=== PATIENT | male | born 1950 | race Caucasian/White ===

== ENCOUNTER 2021-11-26 14:35 | Inpatient (IN) ==
[2021-11-26 17:01] LABS: ABS Eosinophils 0.1 10^3/ul (0-0.6); ABS Lymphocytes 1.3 10^3/ul (1.0-4.8); ABS Monocytes 0.7 10^3/ul (0-0.8); ABS Neutrophils 5.6 10^3/ul (1.5-7.7); Eosinophil % 0.8 %; Hematocrit 41 % (42-52); Hemoglobin 14.8 g/dL (14.0-18.0); Lymphocyte % 16.9 %; Mean Corpuscular HGB Conc 36 g/dL (31-36); Mean Corpuscular Hemoglobin 35 pg (27-31); Mean Corpuscular Volume 96 fL (80-94); Mean Platelet Volume 6.8 fL (7.4-10.4); Nucleated Red Blood Cells % 0.3; Platelet Count 232 10^3/uL (150-450); Red Blood Count 4.22 10^6 /uL (4.18-5.48); Red Cell Distribution Width 13 % (10-15); White Blood Count 7.7 10^3/uL (3.5-10.8)
[2021-11-26] MEDS ORDERED: Vancomycin 1,500 MG in NS 0.9% 250 ml 250 ML IVPB ONE (17:19)
[2021-11-26] MEDS ORDERED: cefTRIAXone 1 gm/50 mL D5W 1 GM/50 ML BAG IV ONE (17:19)
[2021-11-26 17:42] LABS: ALT 24 U/L (7-52); Albumin 4.1 g/dL (3.2-5.2); Albumin/Globulin Ratio 1.2 (1-3); Alkaline Phosphatase 51 U/L (35-149); Anion Gap 7 mmol/L (2-11); Blood Urea Nitrogen 14 mg/dL (6-24); C Reactive Protein 97.32 mg/L (<8.01); CO2 Carbon Dioxide 26 mmol/L (22-32); Chloride 95 mmol/L (101-111); Globulin 3.3 g/dL (2-4); Glucose 205 mg/dL (70-100); Sodium 128 mmol/L (135-145); Total Protein 7.4 g/dL (6.4-8.9); eGFR CKD-EPI 86.7 (>60)
[2021-11-26] MEDS ORDERED: NS 0.9% 250 ml 250 ML ONE (18:41)
[2021-11-26] MEDS ORDERED: Ondansetron 4 mg VIAL 2 MG/ML 2 ml VIAL IV PRN (20:56)
[2021-11-26] MEDS ORDERED: Bacitracin OINTMENT TUBE TOPICAL ONE (21:28)
[2021-11-26] MEDS ORDERED: Vancomycin per Pharmacy 1 EA NOTE FOLLOW UP SCH (22:00)
[2021-11-26] MEDS ORDERED: Dextrose 50% Syringe 50 ml 25 GM/50 ML SYRINGE IV PUSH PRN (22:12)
[2021-11-27] MEDS: Mupirocin 2% OINT TUBE TOPICAL SCH ×3 (00:14→20:27)
[2021-11-27] MEDS: Heparin 5000 UNITS/ML 1 mL VIAL SUBCUT SCH ×2 (01:00→06:23)
[2021-11-27] MEDS: Vancomycin 1000 MG in NS 0.9% 250 ML IVPB SCH ×2 (07:48→18:50)
[2021-11-27 07:52] LABS: ABS Eosinophils 0.1 10^3/ul (0-0.6); ABS Lymphocytes 1.2 10^3/ul (1.0-4.8); ABS Monocytes 0.7 10^3/ul (0-0.8); ABS Neutrophils 3.2 10^3/ul (1.5-7.7); Eosinophil % 1.8 %; Hematocrit 39 % (42-52); Hemoglobin 13.8 g/dL (14.0-18.0); Lymphocyte % 23.1 %; Mean Corpuscular HGB Conc 35 g/dL (31-36); Mean Corpuscular Hemoglobin 34 pg (27-31); Mean Corpuscular Volume 98 fL (80-94); Mean Platelet Volume 6.7 fL (7.4-10.4); Platelet Count 231 10^3/uL (150-450); Red Blood Count 4.04 10^6 /uL (4.18-5.48); Red Cell Distribution Width 12 % (10-15); White Blood Count 5.2 10^3/uL (3.5-10.8)
[2021-11-27 08:26] LABS: Calcium 8.9 mg/dL (8.6-10.3); Potassium 4.2 mmol/L (3.5-5.0); eGFR CKD-EPI 84.5 (>60)
[2021-11-27] MEDS: NS 0.9% 1000 ml BAG 1,000 ML IV SCH (10:58)
[2021-11-27] MEDS ORDERED: Buffered Lidocaine 1% SYRIN 1 ml INTRADERM ONE (13:48)
[2021-11-27] MEDS ORDERED: Famotidine IV 10 MG/ML 2 ml VIAL (20 mg) IV ONE (13:48)
[2021-11-27] MEDS ORDERED: Metoclopramide 5 MG/ML VIAL (10 mg) IV SLOW PU ONE (13:48)
[2021-11-27] MEDS ORDERED: Lactated Ringers 1000 ml BAG 1,000 ML IV SCH (14:00)
[2021-11-27] MEDS ORDERED: Propofol 10 MG/ML 20 ML BTL ONE (14:16)
[2021-11-27] MEDS ORDERED: Lidocaine 2% PF 5 ML VIAL ONE (14:17)
[2021-11-27] MEDS ORDERED: fentaNYL 100 mcg/2 ml 50 MCG/ML VIAL ONE ×2 (14:21→16:21)
[2021-11-27] MEDS ORDERED: Midazolam 2 mg/2 ml VIAL 1 mg/ml 2 ml VIAL (2 mg) ONE (14:23)
[2021-11-27] MEDS ORDERED: Naloxone 0.4 mg VIAL 0.4 mg/ml 1 ml VIAL IV PRN ×2 (14:30→16:58)
[2021-11-27] MEDS ORDERED: DiMENhydriNATE IV 50 mg/ml 1 ml VIAL IV PUSH PRN (14:30)
[2021-11-27] MEDS ORDERED: Ondansetron 4 mg VIAL 2 MG/ML 2 ml VIAL IV PRN (14:30)
[2021-11-27] MEDS ORDERED: Bupivacaine 0.25% SDV 30 ML ONE (14:33)
[2021-11-27] MEDS ORDERED: Lidocaine 1% MPF 5 ML VIAL ONE (14:33)
[2021-11-27] MEDS ORDERED: Metoclopramide 5 MG/ML VIAL (10 mg) ONE (14:44)
[2021-11-27] MEDS ORDERED: Famotidine IV 10 MG/ML 2 ml VIAL (20 mg) ONE (14:44)
[2021-11-27] MEDS ORDERED: Ondansetron 4 mg VIAL 2 MG/ML 2 ml VIAL ONE (15:18)
[2021-11-27] MEDS ORDERED: Dexamethasone IV 4 MG/ML VIAL 1 ml VIAL ONE (15:18)
[2021-11-27] MEDS ORDERED: Acetaminophen IV 1 GM/100ML 100 ML IV ONE (15:24)
[2021-11-27] MEDS: fentaNYL 100 mcg/2 ml 50 MCG/ML VIAL IV PRN ×4 (16:22→16:50)
[2021-11-27] MEDS ORDERED: Morphine 4 MG/ML VIAL (1 ml) IV PRN (16:58)
[2021-11-27] MEDS ORDERED: fentaNYL 100 mcg/2 ml 50 MCG/ML VIAL IV PRN (16:58)
[2021-11-27] MEDS ORDERED: Pravastatin 20 mg TAB (NF) PO SCH (17:00)
[2021-11-27] MEDS ORDERED: cefTRIAXone 1 gm/50 mL D5W 1 GM/50 ML BAG IV SCH (17:00)
[2021-11-27] MEDS ORDERED: Morphine 4 MG/ML VIAL (1 ml) ONE (17:06)
[2021-11-28 01:48] LABS: Glucose Confirmatory 431 mg/dL (70-100)
[2021-11-28] MEDS ORDERED: Vancomycin Trough Check NOTE FOLLOW UP ONE (07:30)
[2021-11-28] MEDS: NS 0.9% 1000 ml BAG 1,000 ML IV SCH (07:42)
[2021-11-28] MEDS: Vancomycin 1000 MG in NS 0.9% 250 ML IVPB SCH (07:42)
[2021-11-28 08:07] LABS: ABS Monocytes 0.7 10^3/ul (0-0.8); ABS Neutrophils 3.8 10^3/ul (1.5-7.7); Eosinophil % 0.2 %; Hematocrit 36 % (42-52); Hemoglobin 12.9 g/dL (14.0-18.0); Lymphocyte % 17.7 %; Mean Corpuscular HGB Conc 36 g/dL (31-36); Mean Corpuscular Hemoglobin 35 pg (27-31); Mean Corpuscular Volume 97 fL (80-94); Mean Platelet Volume 6.7 fL (7.4-10.4); Platelet Count 223 10^3/uL (150-450); Red Blood Count 3.71 10^6 /uL (4.18-5.48); Red Cell Distribution Width 12 % (10-15); White Blood Count 5.5 10^3/uL (3.5-10.8)
[2021-11-28 08:40] LABS: Calcium 8.6 mg/dL (8.6-10.3); Potassium 4.2 mmol/L (3.5-5.0); eGFR CKD-EPI 92.2 (>60)
[2021-11-28] MEDS: Mupirocin 2% OINT TUBE TOPICAL SCH (08:50)
[2021-11-28] MEDS ORDERED: Pneumococcal Vac 23-Polyvalent IM ONE (09:00)
[2021-11-28] MEDS ORDERED: Enoxaparin 40 MG/0.4 ML SYR SUBCUT SCH (11:00)
[2021-11-28 11:36] VITALS: BP 124/58
[2021-12-02] MEDS ORDERED: Vancomycin Trough Check NOTE FOLLOW UP ONE (07:30)
== END 2021-11-28 15:30 | disposition home or self-care (01) | DRG 316 ==
LOC: ED 14:35 → EDHOLD 21:52 → SUATTDRO 21:52 → SSU 11-27 00:11
PROVIDERS: ADMIT Internal Medicine; ATTEND Hospitalist

== ENCOUNTER 2022-05-04 20:27 | Inpatient (IN) ==
[2022-05-04 21:00] LABS: ABS Monocytes 0.8 10^3/ul (0-0.8); ABS Neutrophils 4.5 10^3/ul (1.5-7.7); Eosinophil % 0.7 %; Hematocrit 40 % (42-52); Hemoglobin 13.5 g/dL (14.0-18.0); Lymphocyte % 15.7 %; Mean Corpuscular HGB Conc 34 g/dL (31-36); Mean Corpuscular Hemoglobin 34 pg (27-31); Mean Corpuscular Volume 99 fL (80-94); Mean Platelet Volume 6.6 fL (7.4-10.4); Platelet Count 186 10^3/uL (150-450); Red Blood Count 4.01 10^6 /uL (4.18-5.48); Red Cell Distribution Width 13 % (10-15); White Blood Count 6.3 10^3/uL (3.5-10.8)
[2022-05-04 21:12] LABS: INR 1.12 (0.89-1.11)
[2022-05-04 21:46] LABS: Calcium 9.2 mg/dL (8.6-10.3); Potassium 4.6 mmol/L (3.5-5.0); Total Protein 6.5 g/dL (6.4-8.9); eGFR CKD-EPI 93.9 (>60)
[2022-05-04 21:47] LABS: Albumin/Globulin Ratio 1.6 (1-3); Globulin 2.5 g/dL (2-4); Total Bilirubin 1.1 mg/dL (0.2-1.0)
[2022-05-04 23:09] LABS: High Sensitivity Troponin 1 Hr 23 pg/mL (<20)
[2022-05-04] MEDS ORDERED: Ondansetron ODT 4 mg TAB 4 MG TAB PO ONE (23:26)
[2022-05-05] MEDS ORDERED: NS 0.9% 1000 ml BAG 1,000 ML IV ONE (01:17)
[2022-05-05] MEDS ORDERED: Metoclopramide 5 MG/ML VIAL (10 mg) IV SLOW PU ONE (01:18)
[2022-05-05 02:46] LABS: TSH Ultra Thyroid Stim Horm 2.22 mcIU/mL (0.34-5.60)
[2022-05-05] MEDS ORDERED: Furosemide 20 mg/2 ml IV VIAL IV SLOW PU ONE ×2 (04:02→06:47)
[2022-05-05 05:08] LABS: Osmolality Serum 277 mOsm/kg (275-295)
[2022-05-05] MEDS ORDERED: Dextrose 50% Syringe 50 ml 25 GM/50 ML SYRINGE IV PUSH PRN (05:16)
[2022-05-05] MEDS ORDERED: Albuterol HFA INHALER 8 gm MDI INH PRN (05:18)
[2022-05-05] MEDS: Enoxaparin 40 MG/0.4 ML SYR SUBCUT SCH (06:19)
[2022-05-05 06:29] LABS: Urine Osmo 300 mOsm/kg (150-1150)
[2022-05-05 07:17] LABS: Albumin 3.8 g/dL (3.2-5.2); Albumin/Globulin Ratio 1.7 (1-3); Calcium 8.6 mg/dL (8.6-10.3); Globulin 2.3 g/dL (2-4); HDL Cholesterol 61.3 mg/dL; Magnesium 1.7 mg/dL (1.9-2.7); Potassium 4.7 mmol/L (3.5-5.0); Total Protein 6.1 g/dL (6.4-8.9); eGFR CKD-EPI 92.6 (>60)
[2022-05-05] MEDS ORDERED: Perflutren Lipid Microsphere 3 ML VIAL ONE (08:06)
[2022-05-05 09:12] LABS: C Reactive Protein 5.2 mg/L (<8.01)
[2022-05-05] MEDS ORDERED: Pravastatin 10 mg TAB (NF) PO SCH (12:00)
[2022-05-05] MEDS ORDERED: Heparin 1,000 UNIT/ML 10 ml (10,000 UNITS) CATHLAB/DIALYSIS ONE (14:10)
[2022-05-05] MEDS ORDERED: Midazolam 5 mg/5 ml VIAL 1 mg/ml 5 ml VIAL (5 mg) ONE (14:10)
[2022-05-05] MEDS ORDERED: Heparin 2 UNITS/ML 1000 mls 2,000 ML IV ONE (14:10)
[2022-05-05] MEDS ORDERED: fentaNYL 100 mcg/2 ml 50 MCG/ML VIAL ONE (14:10)
[2022-05-05] MEDS ORDERED: VERAPAMIL 2.5 MG/ML 2 ML VIAL ** 5 mg/2 ml ONE (14:10)
[2022-05-05] MEDS ORDERED: Lidocaine 1% MPF 5 ML VIAL ONE (14:11)
[2022-05-05] MEDS ORDERED: Iohexol 350 (CONTRAST) 100 ML PAK IV ONE (14:11)
[2022-05-05] MEDS ORDERED: nitroGLYCERIN DRIP 25,000 MCG/250 ML BTL ONE (14:11)
[2022-05-05] MEDS ORDERED: NS 0.9% 1000 ml BAG 1,000 ML IV SCH (15:15)
[2022-05-05] MEDS: Mometasone/Formoter 100/5 MDI INH SCH (19:33)
[2022-05-06] MEDS: Enoxaparin 40 MG/0.4 ML SYR SUBCUT SCH (05:47)
[2022-05-06 06:11] LABS: Calcium 8.9 mg/dL (8.6-10.3); Potassium 4.2 mmol/L (3.5-5.0); eGFR CKD-EPI 84.5 (>60)
[2022-05-06] MEDS: Mometasone/Formoter 100/5 MDI INH SCH (07:36)
[2022-05-06 10:00] LABS: Folate 12.3 ng/mL (5.90-24.80)
[2022-05-06] MEDS ORDERED: Cyanocobalamin INJ 1,000 MCG/ML VIAL 1 ML VIAL IM ONE (11:00)
[2022-05-06 17:26] VITALS: BP 112/79
[2022-05-08 17:27] LABS: Albumin 3.1 g/dL (3.4-4.7); Albumin/Globulin Ratio 1.01; Total Protein(PEP) 6.2 g/dL (6.3 - 7.9)
== END 2022-05-06 17:04 | disposition home or self-care (01) | DRG 286 ==
LOC: ED 20:27 → CHICARD 05-05 08:48 → SUATTDRO 05-05 09:43 → EDHOLD 05-05 09:43 → MEDTELE 05-05 17:19
PROVIDERS: ADMIT Internal Medicine; ATTEND Internal Medicine